=== PATIENT | female | born 1985 | race Caucasian/White ===

== ENCOUNTER 2018-02-22 01:58 | Emergency (ER) | payer MEDICAID ==
[~2018-02-22] VITALS: Ht 180.3 cm; Wt 81.6 kg
--- NOTE | 2018-02-22 03:00 | NUR ---
PT BIB SELF C/O L ARM WEAKNESS AND "STIFFNESS". ROM APPEARS WNL, DISTAL CMS INTACT. ALSO REPORTS INTERMITTENT TINGLING IN THE BACK OF THE L HAND. PT REPORTS CHRONIC UNDIAGNOSED NEUROLOGICAL PROBLEM BUT THAT THESE ARE NEW SYMPTOMS. RESP EVEN UNLABORED. SKIN WARM DRY. IN ER BED 11.
--- NOTE | 2018-02-22 03:03 | NUR ---
PT AMBULATED TO RESTROOM WITH STEADY GAIT TO PROVIDE URINE SAMPLE.
[2018-02-22 03:21] LABS: CALCIUM, SERUM 8.4 mg/dL (8.5-10.1); CARBON DIOXIDE 31 mmol/L (21-32); CHLORIDE 105 mmol/L (98-107); CREATININE 0.8 mg/dL (0.6-1.3); GLUCOSE 90 mg/dL (74-106); POTASSIUM 3.7 mmol/L (3.5-5.1); SODIUM SERUM 140 mmol/L (136-145); UREA NITROGEN, BLOOD 6 mg/dL (7-18)
[2018-02-22 03:27] LABS: ALANINE AMINOTRANSFERASE 19 U/L (12-78); ALBUMIN 3.7 g/dL (3.4-5.0); ALKALINE PHOSPHATASE 58 U/L (46-116); ASPARTATE AMINOTRANSFERASE 12 U/L (15-37); BILIRUBIN,TOTAL 0.1 mg/dL (0.2-1.0); TOTAL PROTEIN, SERUM 7.2 g/dL (6.4-8.2)
[2018-02-22 03:36] LABS: BASOPHILS % (AUTO) 0.6 % (0.0-2.0); HEMATOCRIT 41 % (33-45); HEMOGLOBIN 13.7 g/dL (11.5-14.8); LYMPHOCYTES # (AUTO) 1.9 /CMM (0.8-4.8); LYMPHOCYTES % (AUTO) 29.2 % (20.0-44.0); MEAN CORPUSCULAR HGB CONC 33 g/dl (31.0-36.0); MEAN CORPUSCULAR VOLUME 93 fL (82-100); MONOCYTES # (AUTO) 0.3 /CMM (0.1-1.30); MONOCYTES % (AUTO) 5.3 % (2.0-12.0); NEUTROPHILS # (AUTO) 3.9 /CMM (1.8-8.9); NEUTROPHILS % (AUTO) 59.9 % (43.0-81.0); PLATELET COUNT (AUTO) 324 /CMM (150-450); RED BLOOD CELL COUNT(AUTO) 4.47 MIL/uL (4.0-5.2); WHITE BLOOD COUNT (AUTO) 6.4 K/uL (4.3-11.0)
--- NOTE | 2018-02-22 04:02 | NUR ---
RESTING QUIETLY, NAD NOTED. ALL NEEDS ATTENDED TO.
--- NOTE | 2018-02-22 05:12 | NUR ---
SPOKE WITH CAITIE ENVIRONMENTAL AIDE REGARDING TX TO [facility]
--- NOTE | 2018-02-22 05:50 | NUR ---
DR HARRISON SPOKE TO CAITIE MURCIA FOR [facility], PT IS ACCEPTED. PT CONSENTS TO TRANSFER. GIVEN PITCHER OF WATER PER REQUEST. ALL NEEDS ATTENDED TO.
--- NOTE | 2018-02-22 06:28 | NUR ---
transfer info: room 205A, RN to RN [phone], give to charge [email or web address]. accepting MD Dr Saunders.
--- NOTE | 2018-02-22 06:33 | NUR ---
ETA 0745. REPORT GIVEN TO NOA DOTSON FOR TRANSFER
--- NOTE | 2018-02-22 07:13 | NUR ---
REPORT GIVEN TO JORDEN TORRES RN FOR SANDIP
--- NOTE | 2018-02-22 07:19 | NUR ---
RECEIVED REPORT FROM MAURI PEPE FOR SANDIP. PT IS FOR TRANSFER TO [facility], AMBULANCE ETA 0745.
--- NOTE | 2018-02-22 07:58 | NUR ---
GAVE REPORT TO EMT FOR TRANSFER, PT IS [id number], NOT IN RSPIRATORY DISTRESSN V.S STABLE.
[2018-02-22 07:59] VITALS: BP 113/68
== END 2018-02-22 08:04 | disposition short-term general hospital (02) ==
LOC: ER 02:01
DX: R29.818 Other symptoms and signs involving the nervous system (principal); G89.29 Other chronic pain; M54.9 Dorsalgia, unspecified; R51 Headache; Z96.651 Presence of right artificial knee joint; Z88.2 Allergy status to sulfonamides
CPT/HCPCS: 36415; 70450; 71045; 80048; 80076; 80305; 84484; 84703; 85025; 85652; 85730; 93005; 99285; A4606; G0480; Z7610